=== PATIENT | female | born 1945 | race Caucasian/White ===

== ENCOUNTER 2021-01-06 04:09 | Emergency (ER) | payer MEDICARE ==
[~2021-01-06] VITALS: Ht 160 cm; Wt 73.2 kg
[~2021-01-06 04:09] MED LIST: ASPI-1071 PO; CHOL400T32 PO; OSC500T PO; VITA1TAB20 PO; [UNRECOGNIZED DRUG - OTHER] PO
[2021-01-06 04:44] LABS: COLOR,URINE YELLOW (Yellow); GLUCOSE, URINE NEGATIVE (Neg); KETONES,URINE NEGATIVE (Neg); LEUKOCYTE ESTERASE ,URINE TRACE (Neg); NITRITES, URINE POSITIVE (Neg); OCCULT BLOOD,URINE SMALL (Neg); PROTEIN,URINE NEGATIVE (Neg); UROBILINOGEN,URINE 0.2 E.U/dL (0.2-1.0)
[2021-01-06] MEDS ORDERED: ketorolac tromethamine 15mg/ml inj. IV ONE ×2 (04:45→05:45)
[2021-01-06] MEDS ORDERED: normal saline 1000ml 1,000 ML IV ONE (04:45)
[2021-01-06] MEDS ORDERED: normal saline 1000ML IV soln IVB ONE (04:45)
[2021-01-06 05:02] LABS: CLARITY,URINE SLIGHTLY CLOUDY (Clear); UA COLLECTION TYPE CLN CATCH MIDSTREAM
[2021-01-06 05:04] LABS: BACTERIA,URINE FEW /HPF (Neg); RBC,URINE NONE SEEN /HPF (0-2); SQUAMOUS EPITHELIAL CELL,UR FEW /LPF (FEW); WBC,URINE 0-4 /HPF (0-4)
[2021-01-06 05:09] LABS: BASOPHILS # (AUTO) 0.1 X10'3 (0-0.2); BASOPHILS % (AUTO) 0.6 % (0-1); EOSINOPHILS # (AUTO) 0.4 X10'3 (0-0.9); EOSINOPHILS % (AUTO) 4.4 % (0-6); HEMATOCRIT 42.3 % (35.0-45.0); HEMOGLOBIN 14.5 g/dl (12.0-16.0); LYMPHOCYTES # (AUTO) 3.6 X10'3 (1.1-4.8); LYMPHOCYTES % (AUTO) 39.8 % (21-51); MEAN CORPUSCULAR HEMOGLOBIN 31.7 PG (27.0-31.0); MEAN CORPUSCULAR HGB CONC 34.3 g/dL (33.0-36.5); MEAN CORPUSCULAR VOLUME 92.4 FL (78-98); MEAN PLATELET VOLUME 7.5 FL (7.4-10.4); MONOCYTES # (AUTO) 0.8 X10'3 (0-0.9); MONOCYTES % (AUTO) 8.8 % (2-12); NEUTROPHILS # (AUTO) 4.2 X10'3 (1.8-7.7); NEUTROPHILS % (AUTO) 46.4 % (42-75); PLATELET COUNT 236 X10'3 (140-440); RED BLOOD COUNT 4.58 X10'6 (4.20-5.60); RED CELL DISTRIBUTION WIDTH 14.2 % (11.5-14.5)
[2021-01-06 05:18] LABS: PARTIAL THROMBOPLASTIN TIME 28 SECONDS (22-32)
[2021-01-06 05:19] LABS: ALANINE AMINOTRANSFERASE 31 U/L (12-78); ALBUMIN 3.9 G/DL (3.4-5.0); ALBUMIN/GLOBULIN RATIO 1.1 (1.1-1.5); ALKALINE PHOSPHATASE 47 IU/L (46-116); ANION GAP 8 (8-16); ASPARTATE AMINO TRANSFERASE 18 U/L (10-37); BILIRUBIN,TOTAL 0.6 MG/DL (0.1-1.0); BLOOD UREA NITROGEN 13 MG/DL (7-18); BUN/CREATININE RATIO 12.6 (6.6-38.0); CALCIUM 8.7 MG/DL (8.5-10.1); CHLORIDE 105 MMOL/L (99-107); CREATININE 1.03 MG/DL (0.40-0.90); GLUCOSE 108 MG/DL (70-104); LIPASE 104 U/L (73-393); POTASSIUM 4.1 MMOL/L (3.5-5.1); SODIUM 139 MMOL/L (135-145); TOTAL CARBON DIOXIDE 26.4 MMOL/L (24-32); TOTAL PROTEIN 7.5 G/DL (6.4-8.2); eGFR 52 ML/MIN
[2021-01-06] MEDS ORDERED: CEPH250T PO (06:08)
[2021-01-06] MEDS ORDERED: CefTRIAXone 2gm/D5W 50ml BAG 50 ML IV SCH (06:30)
[2021-01-06] MEDS ORDERED: CefTRIAXone 2gm/D5W 50ml BAG 50 ML IV ONE (06:35)
[2021-01-06 07:39] VITALS: BP 125/66
== END 2021-01-06 07:41 | disposition home or self-care (01) ==
LOC: ER 04:09
DX: N39.0 Urinary tract infection, site not specified (principal); N20.0 Calculus of kidney; Z88.2 Allergy status to sulfonamides; Z88.6 Allergy status to analgesic agent; Z88.5 Allergy status to narcotic agent; Z79.899 Other long term (current) drug therapy
CPT/HCPCS: 36415; 74018; 74176; 80053; 81001; 83690; 83735; 85025; 85610; 85730; 87077; 87088; 87186; 96361; 96374; 96375; 99285; J0696; J1885; J7030

== ENCOUNTER 2024-10-16 07:07 | Outpatient (CLI) | payer MEDICARE ==
[~2024-10-16 07:07] MED LIST changes: +VITA-290 PO; -VITA1TAB20 PO
== END 2024-10-16 23:59 | disposition home or self-care (01) ==
LOC: MRI02 07:07
PROVIDERS: ATTEND Physician Assistant Surgical
DX: M51.15 Intervertebral disc disorders with radiculopathy, thoracolumbar region (principal); M54.50 Low back pain, unspecified; M47.816 Spondylosis without myelopathy or radiculopathy, lumbar region; M70.61 Trochanteric bursitis, right hip; M48.061 Spinal stenosis, lumbar region without neurogenic claudication; M43.16 Spondylolisthesis, lumbar region
CPT/HCPCS: 72148